=== PATIENT | male | born 1980 | race Caucasian/White ===

== ENCOUNTER 2018-03-03 10:48 | Outpatient (CLI) | payer BC | END 2018-03-03 10:49 | disposition home or self-care (01) | LOC: BICRAD 10:48 | PROVIDERS: ATTEND Specialist | DX: J44.9 Chronic obstructive pulmonary disease, unspecified (principal) | CPT/HCPCS: 71046 ==

== ENCOUNTER 2018-11-16 08:55 | Outpatient (CLI) | payer BC ==
--- NOTE | 2018-11-16 09:53 | RAD ---
LUMBAR SPINE RADIOGRAPH 2 VIEWS INDICATION: Low back pain. FINDINGS: There are 5 lumbar-type vertebrae. Vertebral body heights and spinal alignment appear within normal limits. There is mild degenerative disk disease of L5-S1. No acute fracture is evident. IMPRESSION: Mild degenerative disk disease at L5-S1. POS: MARY ANN
== END 2018-11-16 08:56 | disposition home or self-care (01) ==
LOC: BICRAD 08:55
PROVIDERS: ATTEND Family Medicine
DX: M54.5 Low back pain (principal); M51.37 Other intervertebral disc degeneration, lumbosacral region
CPT/HCPCS: 72100

== ENCOUNTER 2019-05-29 11:18 | Emergency (ER) | payer BC ==
[2019-05-29 12:23] LABS: #Basophils 0.1 thou/uL (0.0-0.2); #Lymphocytes 0.9 thou/uL (1.20-3.40); #Monocytes 0.5 thou/uL (0.11-0.59); #Neutrophils 3.8 thou/uL (1.40-6.50); %Eosinophils 0.3 % (0.0-10.0); %Lymphocytes 17.3 % (21.0-51.0); %Monocytes 9.2 % (0.0-10.0); %Neutrophils 72.2 % (42.0-75.0); Hemoglobin 14.5 g/dL (14.0-18.0); Mean Corpuscular HGB CONC 34.5 g/dL (32.0-36.0); Mean Corpuscular Hemoglobin 30.3 pg (27.0-31.0); Mean Corpuscular Volume 87.9 fL (78.0-98.0); Mean Platelet Volume 7.5 fL (7.4-10.4); Platelet Count 187 thou/uL (130-400); RBC Distribution Width 11.8 % (11.5-14.5); White Blood Cell (WBC) Count 5.3 thou/uL (4.8-10.8)
[2019-05-29 12:31] LABS: MONO NEGATIVE CONTROL ZONE White (Negative) (White); MONO POSITIVE CONTROL Pink Line (Positive) (PINK/RED); Mononucleosis NEGATIVE (NEGATIVE)
[2019-05-29 12:40] LABS: ALT (SGPT) 13 U/L (8-55); AST (SGOT) 13 U/L (5-34); Alkaline Phosphatase 78 U/L (40-110); Anion Gap 12 mmol/L (10-20); BUN (Urea Nitrogen) 9 mg/dL (8.9-20.6); Bilirubin, Total 0.4 mg/dL (0.2-1.2); CK (CPK) 47 U/L (30-200); Calc. Creatinine Clearance 0 mL/min (70-130); Calcium 9.1 mg/dL (7.8-10.44); Carbon Dioxide 26 mmol/L (22-29); Chloride 106 mmol/L (98-107); Estimated GFR-MDRD Greater than 90; Globulin 3.1 g/dL (2.4-3.5); Glucose 126 mg/dL (70-105); Lipase 28 U/L (8-78); Protein, Total 7.1 g/dL (6.0-8.3); Sodium 140 mmol/L (136-145)
--- NOTE | 2019-05-29 13:39 | CT ---
CTA CHEST WITH CONTRAST: Date: 05/29/19 Axial tomograms obtained with multiplanar reconstruction and 3D postprocessing. INDICATION: Shortness of breath. Cough. Assess for pulmonary embolus. FINDINGS: Pulmonary arteries show adequate enhancement. There is no evidence of pulmonary embolus. The thoracic aorta is unremarkable. No evidence of dissection or aneurysm. Review of the lung reyna show no evidence of confluent infiltrate or effusion. Interstitial markings are mildly prominent in the periphery of both lungs and there is suggestion of a fine reticulonodula r process peripherally. These may be significant given the history of shortness of breath. Pulmonary consultation is suggested. There is a 6 mm nodule in the posterior right lower lobe, which will need follow-up. Mediastinum unremarkable. Upper abdomen unremarkable. IMPRESSION: 1. No evidence of pulmonary embolus. 2. 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 Suggest pulmonary consultation and follow-up. 3. 6.0 mm nodule in the posterior right lung base. Follow-up noncontrast chest CT in 6 months is rec ommended to assess stability. CODE LN. POS: JOSE
== END 2019-05-29 14:40 | disposition home or self-care (01) ==
LOC: SCSER 11:18
DX: R53.83 Other fatigue (principal); R53.81 Other malaise; R60.0 Localized edema; R91.1 Solitary pulmonary nodule; R59.0 Localized enlarged lymph nodes; Z71.6 Tobacco abuse counseling; F17.210 Nicotine dependence, cigarettes, uncomplicated
CPT/HCPCS: 71275; 80053; 82550; 83605; 83690; 83880; 84484; 85025; 86308; 93005; 96360; 99406

== ENCOUNTER 2019-06-06 10:11 | Day surgery (SDC) | payer BC ==
[2019-06-05 14:32] VITALS: BMI 25.1
[2019-06-06] MEDS ORDERED: Promethazine HCl 25 MG/ML VIAL ONE (11:59)
[2019-06-06] MEDS ORDERED: Sodium Chloride 0.9% 10 ML ONE (11:59)
[2019-06-06 12:17] VITALS: BP 115/61; TEMP 98.5
--- NOTE | 2019-06-06 13:09 | ULT ---
ULTRASOUND GUIDED RIGHT AXILLARY VALENTIN BIOPSY: CLINICAL HISTORY: Right axillary adenopathy. PROCEDURE: Informed consent was obtained and the patient was escorted to the procedural suite, placed in supine position. The patient's skin was prepped and draped in a standard sterile fashion and topical anesthesia with buffered 1% lidocaine was performed. After a small skin incision was made, an 18-gaug e needle was advanced to the leading edge of the right axillary adenopathy and a core specimen was acquired. Subsequent, 2 separate FNA procedures were performed, also under ultrasound guidance. These were confirmed with ultrasound imaging and the specimens were submitted to the pathologist for adequacy. Specimens also sent to laboratory for additional evaluation. Specimens were deemed adequate for interpretation. Therefore, all devices were then removed from the patient. No unexpected procedural complications were present. The patient was monitored in radiology holding i n stable condition prior to discharge with family member. IMPRESSION: Technically successful ultrasound-guided percutaneous right axillary valentin biopsy. Pathology results, and laboratory results are pending.
[2019-06-06] MEDS ORDERED: FLU VACC QS2019-20(6MOS UP)/PF 60 MCG/0.5 ML SYRINGE IM ONE (14:45)
== END 2019-06-06 12:10 | disposition home or self-care (01) ==
LOC: ULT 10:11
PROVIDERS: ATTEND Surgery
PROC: 07B53ZX Excision of Right Axillary Lymphatic, Percutaneous Approach, Diagnostic (ICD-10-PCS; principal; 2019-06-06)
DX: R59.1 Generalized enlarged lymph nodes (principal); F17.290 Nicotine dependence, other tobacco product, uncomplicated
CPT/HCPCS: 38505; 87070; 87205; 88305; 88312; 88333; 88334; J2550